=== PATIENT | male | born 1990 | race Caucasian/White ===

== ENCOUNTER 2018-03-11 09:52 | Emergency (ER) | payer MEDICAID | END 2018-03-11 11:56 | disposition home or self-care (01) | LOC: FTE 09:52 | DX: S99.921A Unspecified injury of right foot, initial encounter (principal); X58.XXXA Exposure to other specified factors, initial encounter; Y92.9 Unspecified place or not applicable | CPT/HCPCS: 29515; 73590; 73630; 99283-25 ==